=== PATIENT | female | born 1975 | race African-American/Black ===

== ENCOUNTER 2017-12-26 14:49 | Emergency (ER) | payer SELFPAY ==
[~2017-12-26] VITALS: Ht 157.5 cm; Wt 68.0 kg
[2017-12-26 15:06] VITALS: BP 116/83; PULSE 83; RESP 22; TEMP 98.7; O2SAT 99
[2017-12-26] MEDS ORDERED: iron PO (16:15)
[2017-12-26] MEDS ORDERED: SODIUM CHLORIDE 0.9% FLUSH 10 ML FLUSH IV FLUSH PRN (16:15)
[2017-12-26] MEDS ORDERED: VITA10002 PO (16:15)
[2017-12-26] MEDS ORDERED: BIOT10TA PO (16:15)
[2017-12-26] MEDS ORDERED: OMEP20TA93 PO (16:15)
[2017-12-26] MEDS ORDERED: CHOL5000 PO (16:15)
[2017-12-26] MEDS ORDERED: MULTTAB67 PO (16:15)
[2017-12-26] MEDS ORDERED: CALCTAB19 PO (16:15)
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
[2017-12-26] MEDS ORDERED: SODIUM CHLOR 0.9% 1000 ML INJ 1,000 ML IV SCH (16:30)
[2017-12-26] MEDS ORDERED: MORPHINE SULFATE 4 MG/ML INJ IV PUSH ONE (16:30)
[2017-12-26 16:48] VITALS: BP 143/82; PULSE 70; RESP 19; O2SAT 100
[2017-12-26 17:20] LABS: AUTOMATED NEUTROPHIL # 3.9 TH/MM3 (1.8-7.7); BASOPHIL % 0.7 % (0.0-2.0); EOSINOPHIL % 0.4 % (0.0-4.0); HEMOGLOBIN 10.8 GM/DL (11.6-15.3); LYMPH % 25.9 % (9.0-44.0); LYMPHOCYTE # 1.5 TH/MM3 (1.0-4.8); MEAN CELL VOLUME 75.5 FL (80.0-100.0); MEAN CORPUSCULAR HEMOGLOBIN 26.3 PG (27.0-34.0); MEAN CORPUSCULAR HGB CONC 34.8 % (32.0-36.0); MEAN PLATELET VOLUME 7.9 FL (7.0-11.0); MONO % 7.9 % (0.0-8.0); MONOCYTE # 0.5 TH/MM3 (0-0.9); NEUT % 65.1 % (16.0-70.0); PLATELET COUNT 292 TH/MM3 (150-450); RED BLOOD COUNT 4.11 MIL/MM3 (4.00-5.30); RED CELL DISTRIBUTION WIDTH 16.3 % (11.6-17.2)
[2017-12-26 17:33] LABS: BILIRUBIN, URINE NEG (NEG); BLOOD, URINE SMALL (NEG); GLUCOSE,URINE NEG (NEG); KETONE, URINE TRACE mg/dL (NEG); NITRITE,URINE NEG (NEG); PH, URINE 8.5 (5.0-8.5); SQUAMOUS EPITHELIAL CELL URINE 1 /hpf (0-5); URINE COLOR YELLOW (YELLW/STRAW); URINE LEUKOCYTE ESTERASE NEG (NEG)
[2017-12-26 17:36] LABS: AST (GOT) 77 U/L (15-37); BICARBONATE 25.6 MEQ/L (21.0-32.0); BLOOD UREA NITROGEN 13 MG/DL (7-18); CALCIUM 8.9 MG/DL (8.5-10.1); CHLORIDE 106 MEQ/L (98-107); CREATININE 0.77 MG/DL (0.50-1.00); GLOMERULAR FILTRATION RATE 83 ML/MIN (>89); GLUCOSE,RANDOM 83 MG/DL (74-106); SODIUM (NA) 141 MEQ/L (136-145)
[2017-12-26 17:37] LABS: ALT (GPT) 84 U/L (10-53)
[2017-12-26 17:40] LABS: ALKALINE PHOSPHATASE 174 U/L (45-117); TOTAL BILIRUBIN ADULT 0.8 MG/DL (0.2-1.0); TOTAL PROTEIN 7.9 GM/DL (6.4-8.2)
[2017-12-26] MEDS ORDERED: IOHEXOL 350 MG/ML 10 ML VIAL (for RAD DIAG) IVCONTRAST ONE (17:48)
--- NOTE | 2017-12-26 18:09 | RADRPT ---
EXAM DATE/TIME: 12/26/2017 17:43 [facility] COMPARISON: No previous studies available for comparison. INDICATIONS : Sharp pain right side, vaginal bleeding. IV CONTRAST: 100 cc Omnipaque 350 (iohexol) IV ORAL CONTRAST: No oral contrast ingested. RADIATION DOSE: 13.34 CTDIvol (mGy) MEDICAL HISTORY : None SURGICAL HISTORY : Bariatric ENCOUNTER: Initial ACUITY: 1 day PAIN SCALE: 9/10 LOCATION: Right abdominal TECHNIQUE: Volumetric scanning of the abdomen and pelvis was performed. Using automated exposure control and ad justment of the mA and/or kV according to patient size, radiation dose was kept as low as reasonably achievable to obtain optimal diagnostic quality images. DICOM format image data is available electro nically for review and comparison. FINDINGS: LOWER LUNGS: The visualized lower lungs are clear. LIVER: Homogeneous density without lesion. There is no dilation of the biliary tree. Patient is status post cholecystectomy. Expected dilation of the intra-and extrahepatic ducts. SPLEEN: Normal size without lesion. PANCREAS: Within normal limits. KIDNEYS: Normal in size and shape. There is no mass, stone or hydronephrosis. ADRENAL GLANDS: Within normal limits. VASCULAR: There is no aortic aneurysm. BOWEL/MESENTERY: Surgical clips in the left upper bowel quadrant are characteristic of prior gastric bypass.. ABDOMINAL WALL: Generalized anasarca in the flanks. RETROPERITONEUM: There is no lymphadenopathy. BLADDER: No wall thickening or mass. REPRODUCTIVE: Within normal limits. INGUINAL: There is no lymphadenopathy or hernia. MUSCULOSKELETAL: Facet degeneration at the lumbosacral junction. CONCLUSION: 1. Postsurgical changes characteristic of prior cholecystectomy and gastric bypass. 2. Expected intra-and extrahepatic biliary duct dilatation post cholecystectomy. 3. Generalized anasarca subcutaneous soft tissues of the flanks. 4. No acute intraperitoneal or pelvic process to explain current clinical symptoms. Noel Huizar MD on December 26, 2017 at 17:59 Board Certified Radiologist. This report was verified electronically.
[2017-12-26] MEDS ORDERED: ONDANSETRON HCL 4 MG/2 ML VIAL IV PUSH ONE (19:00)
--- NOTE | 2017-12-26 19:07 | RADRPT ---
EXAM DATE/TIME: 12/26/2017 16:57 [facility] COMPARISON: No previous studies available for comparison. INDICATIONS : Pelvic Pain. MEDICAL HISTORY : History of Ovarian Cysts. SURGICAL HISTORY : Breast biopsy. Bariatric Surgery. ENCOUNTER: Initial ACUITY: 1 day PAIN SCORE: 6/10 LOCATION: Bilateral pelvis MEASUREMENTS: UTERUS: 6.8 x 4.2 x 3.7 cm ENDOMETRIAL STRIPE: 4 mm RIGHT OVARY: 3.1 x 1.6 x 1.2 cm LEFT OVARY: 4.6 x 1.9 x 2.9. cm FINDINGS: UTERUS: The myometrium has homogeneous echotexture without mass. The endometrial cavity is empty. RIGHT OVARY: Ovary contains no mass or significant cystic lesion. There is a 5 mm follicular cyst. Good blood flow to the right ovary. LEFT OVARY: There is a 2.5 cm cyst associated with the left ovary. Good blood flow to the left ovary. MISCELLANEOUS: No free fluid. CONCLUSION: 1. 2.5 cm left ovarian cyst. 2. Otherwise, unremarkable examination for patient's age. Kane Montana MD on December 26, 2017 at 19:01 Board Certified Radiologist. This report was verified electronically.
--- NOTE | 2017-12-26 19:18 | PD ---
Data Data Last Documented VS Vital Signs Date Time Temp Pulse Resp B/P (MAP) Pulse Ox O2 Delivery O2 Flow Rate FiO2 12/26/17 16:48 70 19 143/82 (102) 100 Room Air 12/26/17 15:06 98.7 Orders Orders Complete Blood Count With Diff (12/26/17 16:11) Comprehensive Metabolic Panel (12/26/17 16:11) Lipase (12/26/17 16:11) Urinalysis - C+S If Indicated (12/26/17 16:11) Ct Abd/Pel W Iv Contrast(Rout) (12/26/17 16:11) Iv Access Insert/Monitor (12/26/17 16:11) Ecg Monitoring (12/26/17 16:11) Oximetry (12/26/17 16:11) Sodium Chloride 0.9% Flush (Ns Flush) (12/26/17 16:15) Ed Urine Pregnancytest Poc (12/26/17 16:11) Morphine Inj (Morphine Inj) (12/26/17 16:30) Sodium Chlor 0.9% 1000 Ml Inj (Ns 1000 M (12/26/17 16:30) Us Pelvis Comp W Dop Transvag (12/26/17 ) Iohexol 350 Inj (Omnipaque 350 Inj) (12/26/17 17:48) Ondansetron Inj (Zofran Inj) (12/26/17 19:00) Labs Laboratory Tests Test 12/26/17 16:45 White Blood Count 6.0 TH/MM3 Red Blood Count 4.11 MIL/MM3 Hemoglobin 10.8 GM/DL Hematocrit 31.0 % Mean Corpuscular Volume 75.5 FL Mean Corpuscular Hemoglobin 26.3 PG Mean Corpuscular Hemoglobin Concent 34.8 % Red Cell Distribution Width 16.3 % Platelet Count 292 TH/MM3 Mean Platelet Volume 7.9 FL Neutrophils (%) (Auto) 65.1 % Lymphocytes (%) (Auto) 25.9 % Monocytes (%) (Auto) 7.9 % Eosinophils (%) (Auto) 0.4 % Basophils (%) (Auto) 0.7 % Neutrophils # (Auto) 3.9 TH/MM3 Lymphocytes # (Auto) 1.5 TH/MM3 Monocytes # (Auto) 0.5 TH/MM3 Eosinophils # (Auto) 0.0 TH/MM3 Basophils # (Auto) 0.0 TH/MM3 CBC Comment DIFF FINAL Differential Comment Urine Color YELLOW Urine Turbidity CLEAR Urine pH 8.5 Urine Specific [place] 1.013 Urine Protein NEG mg/dL Urine Glucose (UA) NEG mg/dL Urine Ketones TRACE mg/dL Urine Occult Blood SMALL Urine Nitrite NEG Urine Bilirubin NEG Urine Urobilinogen 2.0 MG/DL Urine Leukocyte Esterase NEG Urine RBC 1 /hpf Urine WBC LESS THAN 1 /hpf Urine Squamous Epithelial Cells 1 /hpf Microscopic Urinalysis Comment CULT NOT INDICATED Blood Urea Nitrogen 13 MG/DL Creatinine 0.77 MG/DL Random Glucose 83 MG/DL Total Protein 7.9 GM/DL Albumin 4.0 GM/DL Calcium Level 8.9 MG/DL Alkaline Phosphatase 174 U/L Aspartate Amino Transf (AST/SGOT) 77 U/L Alanine Aminotransferase (ALT/SGPT) 84 U/L Total Bilirubin 0.8 MG/DL Sodium Level 141 MEQ/L Potassium Level 4.0 MEQ/L Chloride Level 106 MEQ/L Carbon Dioxide Level 25.6 MEQ/L Anion Gap 9 MEQ/L Estimat Glomerular Filtration Rate 83 ML/MIN Lipase 93 U/L [facility] Supervised Visit with [facility]: No Narrative Course The patient was initially evaluated by the previous provider and signed out to me at the beginning of my shift pending labs, CT abdomen pelvis, pelvic ultrasound, and disposition. See her note for further details. Briefly this is a 42-year-old female with history of gastric bypass surgery, ovarian cysts, from [facility], here for evaluation of sudden onset right lower quadrant abdominal pain. Patient is currently on her menstrual period. She was provided pain medication by the previous provider and my assessment she is feeling much better and is resting comfortably. The previous provider performed pelvic exam and noted some right adnexal tenderness without obvious masses. Vital signs are within normal limits. CBC: WBC 6, hemoglobin 10.8, hematocrit 31, platelets 292. CMP is remarkable for AST 77, ALT 84, otherwise unremarkable. UA shows trace ketones, small occult blood, not suggestive of UTI. CT abdomen pelvis: CONCLUSION: 1. Postsurgical changes characteristic of prior cholecystectomy and gastric bypass. 2. Expected intra-and extrahepatic biliary duct dilatation post cholecystectomy. 3. Generalized anasarca subcutaneous soft tissues of the flanks. 4. No acute intraperitoneal or pelvic process to explain current clinical symptoms. Pelvic ultrasound: CONCLUSION: 1. 2.5 cm left ovarian cyst. 2. Otherwise, unremarkable examination for patient's age. Patient was made aware of all findings. On reassessment she is resting comfortably. She did have some nausea and was given Zofran and states that it has improved. She states that she feels much better. She is stable for discharge home with outpatient follow-up with her primary care physician this week. She states she is returning to [facility]. She was advised on when to return to the emergency department. She verbalizes understanding and agreement with plan. Diagnosis Primary Impression: Ovarian cyst Qualified Codes: N83.201 - Unspecified ovarian cyst, right side; N83.202 - Unspecified ovarian cyst, left side Additional Impression: Abdominal pain Qualified Codes: R10.30 - Lower abdominal pain, unspecified Referrals: Primary Care Physician 3 days Additional Instruction: Follow-up with your primary care physician this week. Take Tylenol or ibuprofen for pain. Return to the emergency department for worsening symptoms or any other concerns. Disposition: 01 DISCHARGE HOME Condition: Stable Joe Grady MD Dec 26, 2017 19:18
[2017-12-29] MEDS ORDERED: FERR325T18 PO (11:10)
== END 2017-12-26 20:26 | disposition home or self-care (01) ==
LOC: NEPD 14:49
DX: N83.202 Unspecified ovarian cyst, left side (principal); Z79.899 Other long term (current) drug therapy
CPT/HCPCS: 74177; 76830; 76856; 80053; 81001; 83690; 84703; 85025; 93975; 96361; 96374; 96375; 99285; J2270; J2405; J7030; Q9967